=== PATIENT | male | born 1950 | race Caucasian/White ===

== ENCOUNTER 2016-05-22 06:01 | Inpatient (IN) | payer OTHER ==
[2016-05-02 12:09] VITALS: BMI 39.0
--- NOTE | 2016-05-02 12:59 | PAT Medication Instructions ---
Service Date May 02, 2016. Current Home Medication List Ascorbic Acid (Vitamin C *), 500 MG PO QAM Aspirin Enteric Coated (Ecotrin Or Generic *), 81 MG PO HS Atorvastatin (Lipitor), 40 MG PO HS Chlorthalidone (Hygroton), 25 MG PO QAM Cholecalciferol (Vitamin D), 2,000 INTER.UNIT PO QAM Cyanocobalamin (Vitamin B12 500MCG), 500 MCG PO QAM Fluticasone Prop/Salmeterol (Advair Diskus 250/50 Mcg *), 1 PUFF INH BID Folic Acid (Folvite *), 400 MCG PO QAM Metformin Hcl (Glucophage *), 1,000 MG PO BID Metoprolol Succ (Toprol Xl) (Toprol-Xl ), 100 MG PO QAM Nitroglycerin (Nitrostat), 0.4 MG UT PRN Pioglitazone Hcl (Actos), 30 MG PO QAM Propranolol La (Inderal La), 120 MG PO QAM Ramipril (Altace *), 10 MG PO HS Ranitidine (Zantac), 150 MG PO QAM Tadalafil (Cialis), 20 MG PO UD [Antibiotic], 1 TAB PO BID [selenium ], 2,000 MCG PO QAM Medication Instructions For Your Scheduled Surgery Nitroglycerin (Nitrostat), 0.4 MG UT PRN (if needed) Antibiotic 1 TAB PO BID (will finish prior to surgery) - Hold the following medications 7 days prior to surgery: Selenium 2,000 MCG PO QAM - Hold the following medications 48 hours prior to surgery: Metformin Hcl (Glucophage *), 1,000 MG PO BID - Hold the following medications evening prior to surgery: Ramipril (Altace *), 10 MG PO HS - Hold the following medications 24 hours prior to surgery: Tadalafil (Cialis), 20 MG PO UD - Hold the following medications the morning of surgery: Pioglitazone Hcl (Actos), 30 MG PO QAM Folic Acid (Folvite *), 400 MCG PO QAM Cholecalciferol (Vitamin D), 2,000 INTER.UNIT PO QAM Cyanocobalamin (Vitamin B12 500MCG), 500 MCG PO QAM Chlorthalidone (Hygroton), 25 MG PO QAM Ascorbic Acid (Vitamin C *), 500 MG PO QAM - Take the following medications the morning of surgery with a sip of water: Metoprolol Succ (Toprol Xl) (Toprol-Xl ), 100 MG PO QAM Fluticasone Prop/Salmeterol (Advair Diskus 250/50 Mcg *), 1 PUFF INH BID - Take the following medications as scheduled the night before surgery: Ranitidine (Zantac), 150 MG PO QAM Propranolol La (Inderal La), 120 MG PO QAM Fluticasone Prop/Salmeterol (Advair Diskus 250/50 Mcg *), 1 PUFF INH BID Atorvastatin (Lipitor), 40 MG PO HS Aspirin Enteric Coated (Ecotrin Or Generic *), 81 MG PO HS If you have any questions please call us at [phone] or [phone] ( [place]) or [phone]
[2016-05-02 13:33] LABS: PROTHROMBIN TIME (PATIENT) 11.2 SECONDS (9.0-12.0)
[2016-05-02 13:36] LABS: COMPLETE YES; EOS % 1.5 %; HEMATOCRIT 41.1 % (42-52); IG% 0.2 %; LYMPH % 13.5 %; LYMPH ABS # 0.81 K/uL (1.2-3.4); MEAN CELL VOLUME 96.9 fL (80-100); MEAN CORPUSCULAR HEMOGLOBIN 31.8 pg (25-34); MEAN CORPUSCULAR HGB CONC 32.8 g/dl (32-36); MEAN PLATELET VOLUME 11.2 fL (7.4-10.4); MONO % 10.7 %; NEUT % 74.1 %; PLATELET COUNT 135 K/uL (130-400); RED BLOOD COUNT 4.24 M/uL (4.7-6.1); WHITE BLOOD COUNT 5.99 K/uL (4.8-10.8)
--- NOTE | 2016-05-02 13:49 | DIAGNOSTIC IMAGING REPORT ---
TWO VIEW CHEST CLINICAL HISTORY: Preoperative examination. FINDINGS: PA and lateral chest radiographs are compared to study dated 04/02/2011. The examination is degraded by large body habitus. The heart is mildly enlarged and there is atherosclerotic calcification of the thoracic aorta. The pulmonary vasculature is noncongested. The lungs and pleural spaces are clear. There is no pneumothorax. The bony thorax appears intact. IMPRESSION: Mild cardiac enlargement with no active disease in the chest. Electronically signed by: Tucker Leon M.D. 05/02/2016 1:48 PM Dictated Date/Time: 05/02/2016 1:47 PM
--- NOTE | 2016-05-21 12:07 | HISTORY & PHYSICAL EXAMINATION ---
DATE OF ADMISSION: 05/22/2016 CHIEF COMPLAINT: Left hip pain. HISTORY OF PRESENT ILLNESS: The patient is a 65-year-old gentleman with known osteoarthritis about his left hip. He had a previous right total hip arthroplasty several years ago, which has done well. He has ongoing pain and disability with the left hip and now desires to proceed with left total hip arthroplasty. PAST MEDICAL HISTORY: Coronary artery disease, abdominal aortic aneurysm, hypertension, hypercholesterolemia, mild asthma, sleep apnea with CPAP use, type 2 diabetes, kidney stones, acid reflux, and obesity. PAST SURGICAL HISTORY: Right hip as above, cardiac stent, and lithotripsy. MEDICATIONS: Metformin HCL 1000 mg, Flomax 0.4 mg, propranolol HCL ER 120 mg, Zantac 150 mg, metoprolol succinate ER 100 mg, Nitrostat 0.4 mg sublingual p.r.n., CPAP machine [facility], vitamin B, Cialis, Lipitor 40 mg, chlorthalidone 25 mg, B12 at 500 mcg, vitamin D 3000 units, Advair Diskus 250/50, aspirin 81 mg, Altace 10 mg, Actos 30 mg, selenium 200 mcg, vitamin C 500 mg, and folic acid 400 mcg. ALLERGIES: AMOXICILLIN CAUSES A RASH, CODEINE CAUSES A RASH, BUT HE STATES HE IS OKAY WITH PAIN MEDICATIONS. SOCIAL HISTORY: He states he smokes 2 cigarettes a day and states weekly alcohol use. REVIEW OF SYSTEMS: Noncontributory. PHYSICAL EXAMINATION: GENERAL: Well-nourished and well-developed, obese male who appears his stated age. HEENT: Normocephalic and atraumatic. Extraocular movements intact. Oropharynx is pink and moist. NECK: Supple without adenopathy. LUNGS: Clear to auscultation bilaterally. HEART: Regular rate and rhythm. ABDOMEN: Soft, nontender, nondistended, and obese. EXTREMITIES: The upper extremities are within normal limits. The left hip demonstrates decreased range of motion. There is limitation of active and passive internal/external rotation with pain at end range. X-RAYS: X-rays were reviewed. He has well-aligned and well-fixed hip on the right. Left hip demonstrates moderate to severe osteoarthritis with near complete loss of the joint space. There is mild osteophyte formation about the femoral head and acetabulum. ASSESSMENT: Left hip degenerative joint disease. PLAN: Risks versus benefits were discussed. Consent was obtained. The patient's primary care physician is Dr. Eduar Gann from [place]. His skilled nursing professional is Dr. Armstrong and Dr. Fleming from [facility]. We will proceed with left total hip arthroplasty upon preoperative workup and medical clearance.
[2016-05-22] VITALS (9 sets, daily range): BP systolic 98–145; BP diastolic 60–82; PULSE 52–75; TEMP 36.5–36.6; O2SAT 96–98; Ht 177.8 cm; Wt 123.0 kg
[~2016-05-22] VITALS: Ht 177.8 cm; Wt 123.0 kg
[~2016-05-22 06:01] MED LIST: ACETAMINOPHEN 500 MG TAB PO SCH; ACT/30 PO; ADVIN25050 INH; ALT10 PO; ANTICRE6 PO; ASCA500 PO; ASPEC81 PO; ATOR-24 PO; CEFAZOLIN 3000 MG/65 ML D5W 65 ML IV SCH; CHOL100010 PO; CYAN500T13 PO; CeleBREX 200 MG CAP PO SCH; DEXAMETHASONE 4 MG TAB PO SCH; FAMOTIDINE 20 MG TAB PO SCH; FLV400 PO; GABAPENTIN 300 MG CAP PO SCH; GLC500 PO; HYG/25 PO; INDSR/120 PO; LACTATED RINGER'S 1000ML 1,000 ML IV SCH; LACTATED RINGER'S 1000ML IV SCH; LACTATED RINGER'S 500 ML IV SCH; METO1TAB69 PO; METOCLOPRAMIDE HCL 10 MG TAB PO SCH; NTRGSL/4 UT; ROPIVACAINE 5MG/ML 30 ML 150 MG, BUPIVACAINE/EPINEPHR 0.5% MPF 30 ML, KETOROLAC TROMETH... INFIL SCH; TADA10TA PO; ZNTT/150 PO; selenium PO
[2016-05-22] MEDS ORDERED: BUPIVACAINE 0.5 % 5 MG/1 ML PF 10ML VIAL ONE (06:22)
[2016-05-22] MEDS: TRANEXAMIC ACID INJ 1,000 MG in SODIUM CHLORIDE 0.9% 100ML 100 ML IV SCH ×2 (06:30→07:16)
[2016-05-22] MEDS ORDERED: PROPOFOL IV EMULSION 10 MG/ML 20 ML VIAL IV ONE (06:39)
[2016-05-22] MEDS ORDERED: LIDOCAINE HCL 2% 2 ML VIAL (20MG/ML) ONE (06:39)
[2016-05-22] MEDS ORDERED: FENTANYL CITRATE INJ 50 MCG/1 ML 2 ML VIAL ONE (06:39)
[2016-05-22] MEDS ORDERED: MIDAZOLAM HCL 1 MG/ML 2ML VIAL ONE ×2 (06:39→08:26)
[2016-05-22] MEDS ORDERED: POVIDONE-IODINE OP SOLN 30 ML BTL ONE (06:48)
[2016-05-22] MEDS ORDERED: ORTHO JOINT ANESTHETIC ONE (06:48)
[2016-05-22] MEDS ORDERED: BACITRACIN 50000 UNIT VIAL ONE (06:48)
--- NOTE | 2016-05-22 06:59 | History & Physical Bridge Note ---
H&P Re-Evaluation Bridge Note: I have examined the patient, reviewed the History & Physical and in the interval since the performance of the History & Physical I have noted the following changes of clinical significance: No changes noted
[2016-05-22] MEDS ORDERED: FLUMAZENIL 0.1 MG/1 ML 10 ML VIAL IV PRN (08:15)
[2016-05-22] MEDS ORDERED: NALOXONE HCL 0.4 MG/1 ML VIAL/CARP IV PRN (08:15)
[2016-05-22] MEDS ORDERED: ATROPINE SULFATE 0.1 MG/ML 5ML SYR IV PRN (08:15)
[2016-05-22] MEDS ORDERED: MEPERIDINE HCL 25 MG/ML CARP IV PRN (08:15)
[2016-05-22] MEDS ORDERED: LABETALOL HCL IV 5 MG/ML 20ML IV PRN (08:15)
[2016-05-22] MEDS ORDERED: PHENYLEPHRINE 100MCG/ML 5ML SYR IV PRN (08:15)
[2016-05-22] MEDS ORDERED: ONDANSETRON INJ 2 MG/ML 2 ML VIAL IV PRN ×2 (08:15→09:30)
[2016-05-22] MEDS ORDERED: EpHEDrine SULFATE INJ 50 MG/ML AMP IV PRN (08:15)
[2016-05-22] MEDS ORDERED: FENTANYL CITRATE INJ 50 MCG/1 ML 2 ML VIAL IV PRN (08:15)
[2016-05-22] MEDS ORDERED: EpHEDrine SULFATE 50MG/5ML SYR ONE (08:42)
--- NOTE | 2016-05-22 08:52 | [facility] Post Operative Brief Note ---
Immediate Operative Summary Operative Date May 22, 2016. Pre-Operative Diagnosis Left Hip Degenerative Joint Disease Post-Operative Diagnosis Same as preop Procedure(s) Performed Left Total Hip Arthroplasty Uncemented Surgeon Dr. Ruano Document Restorer Surgeon(s) Kuldip Goss PA-C Estimated Blood Loss 150 ml Findings severe oa Specimens A. Left Femoral Head Disposition Recovery Room / PACU
--- NOTE | 2016-05-22 09:11 | OPERATIVE REPORT ---
DATE OF OPERATION: 05/22/2016 PREOPERATIVE DIAGNOSIS: Osteoarthritis left hip. POSTOPERATIVE DIAGNOSIS: Osteoarthritis left hip. PROCEDURE: Left total hip arthroplasty. SURGEON: Dr. Ruano. SLP: Kuldip Goss PA-C. ANESTHESIA: Spinal. COMPLICATIONS: None. NOTE: The patient's surgery was made much more challenging and took much longer due to the elevated body mass index of 44. OPERATION AND FINDINGS: PROCEDURE: Following induction of adequate spinal anesthesia, the patient was placed in right lateral decubitus position and left Perez-Langenbeck incision was made. Subcutaneous tissue was sharply dissected. Electrocautery used for hemostasis. The fascia was incised throughout the length of the wound and a caceres scissor placed beneath the short external rotators. The pyriformis was tagged with #1 Vicryl. The short external rotators were divided from the posterior aspect of the femur using electrocautery. These were swept posteriorly. A T-capsulotomy incision was made and the hip was dislocated using a combination of flexion, adduction, and internal rotation. Exposure of the femoral neck with old-style Hohmann and a blunt Hohmann was carried out and a femoral rasp was utilized as a guide for making the appropriate level femoral neck cut. This bone fragment was removed and reserved on the back table. Next, attention was turned to the acetabulum where bone hook was used to retract the femur while the offset retractors were placed anterior and posteriorly. A double-angled Hohmann was placed in superior and anterior position exposing the acetabulum nicely. Acetabular labrum as well as posterior capsule elements were removed using a long knife and a long pickup. Fovea centralis was cleared of all soft tissue. Sequential reamings were carried up to a size 54 and decision was made to proceed with impaction of a 54 trabecular metal cup. This was impacted and held using a single 35 mm bone screw. The acetabular liner was placed with 15 of elevated posterior wall in the superior and posterior position. Next, attention was turned to the femoral portion of the case where a Bovie and pickup was used to further clear short external rotators from their insertion on the femur. Box osteotome was used to gain access to the femoral canal and the T-handled rasp and a rattail rasp were used to further open and lateral the canal. Sequentially raspings were carried up to a Accolade size 4 which gave good fit and fill of the proximal femur. A trial reduction was carried out and size 4 offset femoral neck component was chosen as the size to be used. A +0 x 36 mm ceramic femoral head was impacted into position, +0 head was utilized. The trial reduction was stable in all degrees of rotation with no [id number] impingement. The hip was dislocated. The trial components were removed and the final femoral stem, neck, and femoral head combination were assembled on the back table and impacted into position. Hip was relocated. Range of motion checked once again successful and the wound was irrigated. The pyriformis repaired to the greater trochanter using #1 Vicryl [id number] suture. A Hemovac drain was placed and the fascia was closed using #1 Vicryl, subcutaneous tissue was closed using 0 Dexon, and skin was closed with garo. Sterile dressing of Adaptic, 4 x 4's, ABDs, and foam tape was applied. Recovery room stable. The patient tolerated the procedure well. Due to the complex nature of the procedure, the entire surgery was performed with the operational assistance of Kuldip Goss PA-C. The bookkeeping assistant, under direct supervision, was involved in the actual performance of all aspects of the surgical procedure including hemostasis, tissue retraction and incision, instrument management, patient positioning, and wound closure. I attest to the content of the Intraoperative Record and any orders documented therein. Any exceptio ns are noted below.
[2016-05-22] MEDS ORDERED: ZOLPIDEM TARTRATE 5 MG TAB PO PRN (09:30)
[2016-05-22] MEDS ORDERED: BISACODYL 10 MG SUPP PR PRN (09:30)
[2016-05-22] MEDS ORDERED: ALUMINUM/MAGNESIUM/SIMETH (MAALOX MAX) 30 ML UDC PO PRN (09:30)
[2016-05-22] MEDS ORDERED: MoRPHine SULFATE 2 MG/ML CARP IV PRN (09:30)
[2016-05-22] MEDS ORDERED: MAGNESIUM HYDROXIDE SUSP 30 ML UDC PO PRN (09:30)
[2016-05-22] MEDS ORDERED: NITROGLYCERIN 0.4 MG SL PER TAB CHARGE UT PRN (09:30)
[2016-05-22] MEDS ORDERED: DiphenhydrAMINE HCL 50 MG/ML VIAL IV PRN (09:30)
--- NOTE | 2016-05-22 09:54 | DIAGNOSTIC IMAGING REPORT ---
AP PELVIS, CROSSTABLE LATERAL LEFT HIP History: Left total hip arthroplasty. Degenerative arthritis. Postop. FINDINGS: The patient is status post a left total hip arthroplasty. The hardware is intact. No fracture or dislocation. Skin garo and surgical drains are in place. Prior right total hip arthroplasty. IMPRESSION: Left total hip arthroplasty. No evidence for hardware complication. Electronically signed by: Ricky Hummel M.D. 05/22/2016 9:52 AM Dictated Date/Time: 05/22/2016 9:52 AM
--- NOTE | 2016-05-22 10:14 | Anesthesiology Progress Note ---
Anesthesia Post Op Note Date & Time May 22, 2016 at 10:14 Vital Signs Pain Intensity: 0 Vital Signs Past 12 Hours Date Time Temp Pulse Resp B/P Pulse Ox O2 Delivery O2 Flow Rate FiO2 05/22/16 10:00 56 12 115/47 100 Nasal Cannula 2 05/22/16 09:50 54 12 108/58 100 Nasal Cannula 4 05/22/16 09:40 52 12 110/52 100 Nasal Cannula 4 05/22/16 09:30 36.4 62 16 110/52 98 Nasal Cannula 4 05/22/16 06:45 36.5 62 20 139/61 97 Room Air Notes Mental Status: alert / awake / arousable, participated in evaluation Pt Amnestic to Procedure: Yes Nausea / Vomiting: adequately controlled Pain: adequately controlled Airway Patency, RR, SpO2: stable & adequate BP & HR: stable & adequate Hydration State: stable & adequate Neuraxial Anesthesia: was administered, sensory block is resolving Anesthetic Complications: no major complications apparent
[2016-05-22] MEDS: SODIUM CHLORIDE 0.9% 1000ML 1,000 ML IV SCH ×2 (11:20→19:15)
--- NOTE | 2016-05-22 11:34 | Medical Consult ---
Consultation Date of Consultation: May 22, 2016. Attending Physician: Tim Ruano M.D. Reason for Consultation: s/p left hip arthroplasty, sig CAD history History of Present Illness This is a 65 yo m that is POD0 s/p left hip arthroplasty. Patient has several significant comorbidities that could complicate the post op time period so a hospital consulation was made. He has a significant cardiac history which includes stent placement without having an TX. He states that his first cath was in but no stent was placed at this time. He had another cath 4-5 years later where stents were placed and finally one in 2005 approximately which also had stents placed. Since this time he has been following with Dr Perez cardiology. He states his last echo was in the last 6 months and he had a stress test 2 weeks prior which was WNL. He denies ever having any chest pain or the need to use NTG. He also has a h/o DM. This is controlled mainly with the oral agents, metformin and Actos. He notes that he feels he has had reasonable control with this medication and has never had to take insulin. He states that he currently has very good pain control and is feeling well. Denies any SOB, chest pain, nausea or vomiting at this time. Past Medical/Surgical History CAD requiring stent placement DMII Vit D def Right hip arthroplasty Asthma Family History Patient reports no known family medical history. Social History Smoking Status: Light Tobacco Smoker (2 cig daily) Smokeless Tobacco Use: No Alcohol Use: socially Drug Use: none Marital Status: Housing Status: lives with family Allergies Coded Allergies: Amoxicillin (Verified Allergy, Intermediate, rash, 05/22/16) Codeine (Verified Allergy, Intermediate, rash, 05/22/16) Current Inpatient Medications Current Inpatient Medications Medications (Trade) Dose Ordered Sig/Darrell Route Start Time Stop Time Status Last Admin Dose Admin Lactated Ringer's 1,000 ml @ 60 mls/hr [id number] IV 05/22/16 06:00 05/22/16 22:39 Cefazolin Sodium (Ancef 3000 Mg/ 65 ml D5W) 65 ml @ 100 mls/hr PREOP IV 05/22/16 06:00 05/22/16 18:00 05/22/16 07:43 100 MLS/HR Acetaminophen (Tylenol Tab) 1,000 mg PREOP PO 05/22/16 06:00 05/22/16 18:00 05/22/16 07:06 1,000 MG Celecoxib (CeleBREX CAP) 200 mg PREOP PO 05/22/16 06:00 05/22/16 18:00 05/22/16 07:05 200 MG Dexamethasone (Decadron Tab) 8 mg PREOP PO 05/22/16 06:00 05/22/16 18:00 05/22/16 07:06 8 MG Famotidine (Pepcid Tab) 20 mg PREOP PO 05/22/16 06:00 05/22/16 18:00 05/22/16 07:05 20 MG Gabapentin (Neurontin Cap) 300 mg PREOP PO 05/22/16 06:00 05/22/16 18:00 05/22/16 07:06 300 MG Metoclopramide HCl 10 mg 10 mg PREOP PO 05/22/16 06:00 05/22/16 18:00 05/22/16 07:06 10 MG Tranexamic Acid/ Sodium Chloride (Cyklokapron Inj/ Nss 100ml) 110 ml @ 660 mls/hr TODAY@06,0630 IV 05/22/16 06:00 05/22/16 18:00 05/22/16 07:16 660 MLS/HR Fentanyl Citrate (Fentanyl Inj) 25 mcg Q5M PRN IV 05/22/16 08:15 05/22/16 13:15 Naloxone HCl (Narcan Inj) 0.2 mg Q2M PRN IV 05/22/16 08:15 05/23/16 08:14 Meperidine HCl (Demerol Inj) 12.5 mg Q5M PRN IV 05/22/16 08:15 05/23/16 08:14 Ondansetron HCl (Zofran Inj) 4 mg ONE PRN IV 05/22/16 08:15 Flumazenil (Romazicon Inj) 0.2 mg Q2M PRN IV 05/22/16 08:15 05/22/16 13:15 Labetalol HCl (Normodyne IV) 5 mg Q5M PRN IV 05/22/16 08:15 05/22/16 13:15 Ephedrine Sulfate (EpHEDrine SULFATE INJ) 5 mg Q5M PRN IV 05/22/16 08:15 05/23/16 08:14 Atropine Sulfate (Atropine Sulfate 0.1MG/Ml Inj) 0.5 mg Q1M PRN IV 05/22/16 08:15 05/22/16 12:15 Phenylephrine HCl (Denys-Synephrine 500MCG/5ML Syr) 100 mcg Q5M PRN IV 05/22/16 08:15 05/22/16 13:15 Atorvastatin Calcium (Lipitor Tab) 40 mg HS PO 05/22/16 21:00 06/21/16 20:59 Chlorthalidone (Hygroton Tab) 25 mg QAM PO 05/23/16 09:00 06/22/16 08:59 Cholecalciferol (Vitamin D Tab) 2,000 inter.unit QAM PO 05/23/16 09:00 06/22/16 08:59 Cyanocobalamin (Vitamin B-12 Tab) 500 mcg QAM PO 05/23/16 09:00 06/22/16 08:59 Salmeterol Xinafoate/ Fluticasone (Advair Diskus 250/50 Inh) 1 puff BID INH 05/22/16 21:00 06/21/16 20:59 Folic Acid (Folvite Tab) 400 mcg QAM PO 05/23/16 09:00 06/22/16 08:59 Metoprolol Succinate (Toprol Xl Tab) 100 mg QAM PO 05/23/16 09:00 06/22/16 08:59 Nitroglycerin (Nitrostat Tab) 0.4 mg UD PRN UT 05/22/16 09:30 06/21/16 09:29 Propranolol HCl (Inderal La Cap) 120 mg QAM PO 05/23/16 09:00 06/22/16 08:59 Non-Formulary Medication (Pioglitazone Hcl (Actos)) 30 mg QAM PO 05/23/16 09:00 06/22/16 08:59 UNV Non-Formulary Medication (Ramipril (Altace *)) 10 mg HS PO 05/22/16 21:00 06/21/16 20:59 UNV Morphine Sulfate PAIN SCALE 0-3 2MG ... Q4HWA PRN IV 05/22/16 09:30 06/05/16 09:29 UNV Sodium Chloride (Nss 1000ml) 1,000 ml @ 100 mls/hr Q10H IV 05/22/16 09:30 05/23/16 09:29 05/22/16 11:20 100 MLS/HR Oxycodone HCl 1 TABLET FOR PAIN RATING... Q4H PRN PO 05/22/16 09:30 06/05/16 09:29 Acetaminophen/ Empty Bag (Ofirmev Iv/ Empty Iv Bag 100ml) 100 ml @ 400 mls/hr Q8 IV 05/22/16 14:00 05/23/16 13:59 Magnesium Hydroxide (Milk Of Magnesia Susp) 30 ml Q6H PRN PO 05/22/16 09:30 06/21/16 09:29 Bisacodyl (Dulcolax Supp) 10 mg DAILY PRN WV 05/22/16 09:30 06/21/16 09:29 Senna (Senokot Tab) 17.2 mg HS PO 05/22/16 21:00 06/21/16 20:59 Docusate Sodium (coLACE CAP) 100 mg BID PO 05/22/16 21:00 06/21/16 20:59 Diphenhydramine HCl (Benadryl Inj) 25 mg Q8H PRN IV 05/22/16 09:30 06/21/16 09:29 Al Hydrox/Mg Hydrox/Simethicone (Maalox Max Susp) 15 ml Q4H PRN PO 05/22/16 09:30 06/21/16 09:29 Zolpidem Tartrate (Ambien Tab) 5 mg HSZ PRN PO 05/22/16 09:30 06/21/16 09:29 Multivitamins (Multivitamin Tab) 1 tab QAM PO 05/23/16 09:00 06/22/16 08:59 Ondansetron HCl (Zofran Inj) 4 mg Q6H PRN IV 05/22/16 09:30 06/21/16 09:29 Ferrous Gluconate (Ferrous Gluconate Tab) 324 mg TIDM PO 05/22/16 12:30 06/21/16 12:29 Pantoprazole Sodium (Protonix Tab) 40 mg QAM PO 05/23/16 09:00 06/22/16 08:59 Tramadol HCl 1 TABLET FOR PAIN RATING... Q4H PRN PO 05/22/16 09:30 06/21/16 09:29 Cefazolin Sodium/ Dextrose (Ancef Iv/D5 50ml) 60 ml @ 100 mls/hr Q8H IV 05/22/16 16:00 05/23/16 00:35 Aspirin (Ecotrin Tab) 81 mg BID PO 05/22/16 21:00 06/21/16 20:59 Insulin Aspart (novoLOG ASPART) SLIDING SCALE G... ACHS SC 05/22/16 12:00 06/21/16 11:59 Review of Systems Constitutional: No fever Eyes: No worsening of vision ENT: No hearing loss Respiratory: No cough, No dyspnea at rest, No dyspnea on exertion, No shortness of breath, No sputum, No wheezing Cardiovascular: No chest pain Abdomen: No constipation, No diarrhea, No nausea, No pain, No vomiting Musculoskeletal: + joint pain (right hip arthroplasty pain controlled) Genitourinary - Male: No dysuria, No hematuria Neurologic: No balance problems, No numbness/tingling, No weakness Psychiatric: No depression symptoms Endocrine: No fatigue Integumentary: No rash Physical Exam Date Time Temp Pulse Resp B/P Pulse Ox O2 Delivery O2 Flow Rate FiO2 05/22/16 11:07 52 18 132/79 97 Nasal Cannula 2.0 05/22/16 10:35 Nasal Cannula 2.0 05/22/16 10:35 98 Nasal Cannula 2.0 05/22/16 10:35 36.6 58 16 114/73 98 Nasal Cannula 2.0 05/22/16 10:20 36.3 55 14 109/52 99 Nasal Cannula 2 05/22/16 10:10 58 17 98/53 100 Nasal Cannula 2 05/22/16 10:00 56 12 115/47 100 Nasal Cannula 2 05/22/16 09:50 54 12 108/58 100 Nasal Cannula 4 05/22/16 09:40 52 12 110/52 100 Nasal Cannula 4 05/22/16 09:30 36.4 62 16 110/52 98 Nasal Cannula 4 05/22/16 06:45 36.5 62 20 139/61 97 Room Air General Appearance: WD/WN, no apparent distress Head: normocephalic, atraumatic Eyes: normal inspection ENT: normal ENT inspection Neck: supple Respiratory/Chest: lungs clear, normal breath sounds, no respiratory distress, no accessory muscle use, + decreased breath sounds (bilat bases) Cardiovascular: regular rate, rhythm, no murmur Abdomen/GI: normal bowel sounds, non tender, soft Back: normal inspection Extremities/Musculoskelatal: normal inspection, no calf tenderness, no pedal edema Neurologic/Psych: alert, normal mood/affect, oriented x 3 Skin: normal color, warm/dry, no rash, + pertinent finding (left hip incision clean dry and intact) Laboratory Results Last 24 Hours Test 05/22/16 06:21 05/22/16 09:34 05/22/16 11:01 Bedside Glucose 165 mg/dl 155 mg/dl Assessment & Plan This is a 65 yo m POD0 s/p left hip arthroplasty with a sig medical h/o CAD/DMII / Sleep apnea/ Obesity S/P left hip arthroplasty - pain control as per primary team - incentive spirometry H/O CAD/ HTN - On Toprol XL, Chlorthalidone, enalapril - Hold ramipril - resume in am if renal function, BP ok. - took toprol this am. - BMP to assess Cr Essential tremors - hold inderal for now to avoid hypotension Anemia - repeat CBC in the am and follow - continue ferrous gluconate Hyperlipidemia - continue atorvastatin Asthma - continue advair O2 per protocol - Duoneb prn Sleep apnea - CPAP overnight GERD - Continue pantoprazole DMII - hold metformin - continue actos - Insulin ISS - bsg AC HS Full code Additional Copies To Eduar Gann M.D. Reviewed: Pt Seen/Exam by Me History 65 y/o M s/p left hip arthroplasty Constitutional: denies: fever Respiratory: negative: short of breath Cardiovascular: denies chest pain Gastrointestinal/Abdominal: negative: abdominal pain General Appearance: no apparent distress Respiratory: lungs clear, no respiratory distress Cardiovascular: normal peripheral pulses, regular rate, rhythm, no edema Gastrointestinal: normal bowel sounds, non tender, soft Neurologic/Psychiatric: alert, oriented x 3 Skin Characteristics: warm/dry Assessment/Plan I have reviewed the medical record and performed a history and physical examination of this patient today. I have discussed the case with Dr. Herr. The above note reflects my findings, conclusions, and recommendations. BSG - in 300. Metformin on hold today. Add lantus 10units - one dose now.
[2016-05-22] MEDS ORDERED: MoRPHine SULFATE 10 MG/ML CARP/VIAL IV PRN (11:45)
[2016-05-22] MEDS ORDERED: MoRPHine SULFATE 4 MG/ML 1 ML CARP\\VIAL IV PRN (11:45)
[2016-05-22] MEDS ORDERED: ALBUT/IPRATROP 3MG/0.5MG NEB 3 ML VIAL INH PRN (11:45)
[2016-05-22] MEDS: FERROUS GLUCONATE 324 MG TAB PO SCH ×2 (12:30→18:14)
[2016-05-22] MEDS: INSULIN ASPART 100 UNITS/ML 3 ML PEN SC SCH ×3 (12:31→20:44)
[2016-05-22 12:36] LABS: BUN/CREATININE RATIO 22.4 (10-20); CALCIUM 8.7 mg/dl (8.5-10.1); CREATININE 1.3 mg/dl (0.60-1.40); POTASSIUM 5.1 mmol/L (3.5-5.1)
[2016-05-22] MEDS: ACETAMINOPHEN IV 1,000 MG in EMPTY BAG 0 ML IV SCH ×2 (13:40→21:36)
[2016-05-22] MEDS: CEFAZOLIN IV 2,000 MG in DEXTROSE 5% 50ML 50 ML IV SCH ×2 (15:28→23:37)
[2016-05-22] MEDS ORDERED: INSULIN GLARGINE SOLOSTAR 100 UNITS/ML 3 ML PEN SC ONE (16:58)
[2016-05-22] MEDS ORDERED: GLUCAGON FOR INJ 1 MG VIAL SQ PRN (17:15)
[2016-05-22] MEDS ORDERED: GLUCOSE 40% GEL 15 GM TUBE PO PRN (17:15)
[2016-05-22] MEDS ORDERED: GLUCOSE 10 TABS/TUBE PO PRN (17:15)
[2016-05-22] MEDS ORDERED: DEXTROSE 50% 50 ML SYR IV PRN (17:15)
[2016-05-22] MEDS ORDERED: LORATADINE 10 MG TAB PO ONE (18:30)
[2016-05-22] MEDS: OXYCODONE HCL IR 5 MG TAB (IMMEDIATE RELEASE) PO PRN (20:33)
[2016-05-22] MEDS: ATORVASTATIN 40 MG TAB PO SCH (20:36)
[2016-05-22] MEDS: ENALAPRIL MALEATE 10 MG TAB PO SCH (20:36)
[2016-05-22] MEDS: ASPIRIN 81 MG ECTAB PO SCH (20:37)
[2016-05-22] MEDS: DOCUSATE SODIUM 100 MG CAP PO SCH (20:37)
[2016-05-22] MEDS: SENNA 8.6 MG TAB PO SCH (20:37)
[2016-05-22] MEDS: FLUTICASONE/SALMETEROL 250/50 (ADVAIR) 14 PUFF/1 INHALER INH SCH (20:38)
[2016-05-22] MEDS: TRAMADOL HCL 50 MG TAB PO PRN (23:37)
[2016-05-23] VITALS (8 sets, daily range): BP systolic 101–129; BP diastolic 62–74; PULSE 54–76; TEMP 36.5–36.6; O2SAT 95–98
[2016-05-23] MEDS: OXYCODONE HCL IR 5 MG TAB (IMMEDIATE RELEASE) PO PRN ×6 (04:16→23:36)
[2016-05-23] MEDS: SODIUM CHLORIDE 0.9% 1000ML 1,000 ML IV SCH (05:51)
[2016-05-23] MEDS: ACETAMINOPHEN IV 1,000 MG in EMPTY BAG 0 ML IV SCH (05:51)
[2016-05-23 05:54] LABS: COMPLETE YES; HEMATOCRIT 34.1 % (42-52); IG% 0.3 %; LYMPH % 7.3 %; LYMPH ABS # 0.58 K/uL (1.2-3.4); MEAN CELL VOLUME 95.3 fL (80-100); MEAN CORPUSCULAR HGB CONC 32.6 g/dl (32-36); MEAN PLATELET VOLUME 11.4 fL (7.4-10.4); MONO % 11.9 %; NEUT % 80.5 %; PLATELET COUNT 119 K/uL (130-400); RED BLOOD COUNT 3.58 M/uL (4.7-6.1); WHITE BLOOD COUNT 7.96 K/uL (4.8-10.8)
[2016-05-23 06:27] LABS: BUN/CREATININE RATIO 23.6 (10-20); CREATININE 1.4 mg/dl (0.60-1.40); POTASSIUM 4.2 mmol/L (3.5-5.1)
--- NOTE | 2016-05-23 07:42 | Anesthesiology Progress Note ---
Anesthesia Post Op Note Date & Time May 23, 2016 at 07:41 Vital Signs Pain Intensity: 2.0 Vital Signs Past 12 Hours Date Time Temp Pulse Resp B/P Pulse Ox O2 Delivery O2 Flow Rate FiO2 05/23/16 04:12 36.6 54 18 117/68 98 CPAP 05/22/16 23:47 Room Air 05/22/16 23:32 36.6 75 22 98/60 96 Room Air 05/22/16 20:21 36.6 65 16 122/69 97 Room Air Notes Mental Status: alert / awake / arousable, participated in evaluation Pt Amnestic to Procedure: Yes Nausea / Vomiting: adequately controlled Pain: adequately controlled Airway Patency, RR, SpO2: stable & adequate BP & HR: stable & adequate Hydration State: stable & adequate Neuraxial Anesthesia: sensory block resolved Anesthetic Complications: no major complications apparent
[2016-05-23] MEDS: INSULIN ASPART 100 UNITS/ML 3 ML PEN SC SCH ×4 (08:00→22:00)
[2016-05-23] MEDS: INSULIN GLARGINE SOLOSTAR 100 UNITS/ML 3 ML PEN SC SCH (08:34)
--- NOTE | 2016-05-23 08:47 | Family Medicine Progress Note ---
Progress Note Date of Service May 23, 2016. Subjective Pt evaluation today including: conversation w/ patient, physical exam, chart review, lab review Pain: 0/10 PO Intake: WNL Voiding: no voiding problems Feeling well this am, was resting in bed no questions or concerns Constitutional: No fever Eyes: No worsening of vision ENT: No hearing loss Respiratory: No cough, No dyspnea on exertion, No shortness of breath, No sputum, No wheezing Cardiovascular: No chest pain Abdomen: No constipation, No diarrhea, No nausea, No pain, No vomiting Musculoskeletal: No joint pain, No muscle pain Neurologic: No balance problems, No numbness/tingling, No weakness Endo: No fatigue Medications Medications Administered Medications (Trade) Dose Ordered Sig/Darrell Route Start Time Stop Time Status Last Admin Dose Admin Lactated Ringer's 500 ml @ 999 mls/hr Q31M IV 05/22/16 06:00 05/22/16 06:30 DC 05/22/16 06:35 999 MLS/HR Cefazolin Sodium (Ancef 3000 Mg/ 65 ml D5W) 65 ml @ 100 mls/hr PREOP IV 05/22/16 06:00 05/22/16 18:00 DC 05/22/16 07:43 100 MLS/HR Acetaminophen (Tylenol Tab) 1,000 mg PREOP PO 05/22/16 06:00 05/22/16 18:00 DC 05/22/16 07:06 1,000 MG Celecoxib (CeleBREX CAP) 200 mg PREOP PO 05/22/16 06:00 05/22/16 18:00 DC 05/22/16 07:05 200 MG Dexamethasone (Decadron Tab) 8 mg PREOP PO 05/22/16 06:00 05/22/16 18:00 DC 05/22/16 07:06 8 MG Famotidine (Pepcid Tab) 20 mg PREOP PO 05/22/16 06:00 05/22/16 18:00 DC 05/22/16 07:05 20 MG Gabapentin (Neurontin Cap) 300 mg PREOP PO 05/22/16 06:00 05/22/16 18:00 DC 05/22/16 07:06 300 MG Metoclopramide HCl 10 mg 10 mg PREOP PO 05/22/16 06:00 05/22/16 18:00 DC 05/22/16 07:06 10 MG Tranexamic Acid/ Sodium Chloride (Cyklokapron Inj/ Nss 100ml) 110 ml @ 660 mls/hr TODAY@06,0630 IV 05/22/16 06:00 05/22/16 18:00 DC 05/22/16 07:16 660 MLS/HR Povidone Iodine (Betadine Ophthalmic Prep Solution) 30 ml STK-MED ONCE .ROUTE 05/22/16 06:48 05/22/16 06:51 DC 05/22/16 09:00 30 ML Bacitracin (Bacitracin Inj) 50,000 units STK-MED ONCE .ROUTE 05/22/16 06:48 05/22/16 06:51 DC 05/22/16 09:10 50,000 UNITS Atorvastatin Calcium (Lipitor Tab) 40 mg HS PO 05/22/16 21:00 06/21/16 20:59 05/22/16 20:36 40 MG Salmeterol Xinafoate/ Fluticasone (Advair Diskus 250/50 Inh) 1 puff BID INH 05/22/16 21:00 06/21/16 20:59 05/22/16 20:38 1 PUFF Enalapril Maleate 40 mg 40 mg HS PO 05/22/16 21:00 06/21/16 20:59 05/22/16 20:36 40 MG Sodium Chloride (Nss 1000ml) 1,000 ml @ 100 mls/hr Q10H IV 05/22/16 09:30 05/23/16 09:29 05/23/16 05:51 100 MLS/HR Oxycodone HCl 1 TABLET FOR PAIN RATING... Q4H PRN PO 05/22/16 09:30 06/05/16 09:29 05/23/16 04:16 5 MG Acetaminophen/ Empty Bag (Ofirmev Iv/ Empty Iv Bag 100ml) 100 ml @ 400 mls/hr Q8 IV 05/22/16 14:00 05/23/16 13:59 05/23/16 05:51 400 MLS/HR Senna (Senokot Tab) 17.2 mg HS PO 05/22/16 21:00 06/21/16 20:59 05/22/16 20:37 17.2 MG Docusate Sodium (coLACE CAP) 100 mg BID PO 05/22/16 21:00 06/21/16 20:59 05/22/16 20:37 100 MG Diphenhydramine HCl (Benadryl Inj) 25 mg Q8H PRN IV 05/22/16 09:30 06/21/16 09:29 05/23/16 04:15 25 MG Ferrous Gluconate (Ferrous Gluconate Tab) 324 mg TIDM PO 05/22/16 12:30 06/21/16 12:29 05/22/16 18:14 324 MG Tramadol HCl 1 TABLET FOR PAIN RATING... Q4H PRN PO 05/22/16 09:30 06/21/16 09:29 05/22/16 23:37 100 MG Cefazolin Sodium/ Dextrose (Ancef Iv/D5 50ml) 60 ml @ 100 mls/hr Q8H IV 05/22/16 16:00 05/23/16 00:35 DC 05/22/16 23:37 100 MLS/HR Aspirin (Ecotrin Tab) 81 mg BID PO 05/22/16 21:00 06/21/16 20:59 05/22/16 20:37 81 MG Insulin Aspart (novoLOG ASPART) SLIDING SCALE G... ACHS SC 05/22/16 12:00 06/21/16 11:59 05/22/16 20:44 4 UNITS Insulin Glargine (Lantus Solostar Pen) 10 unit 1658 ONCE SC 05/22/16 16:58 05/22/16 17:04 DC 05/22/16 18:47 10 UNIT Loratadine (Claritin Tab) 10 mg NOW ONCE PO 05/22/16 18:30 05/22/16 18:32 DC 05/22/16 19:14 10 MG Objective Vital Signs Date Time Temp Pulse Resp B/P Pulse Ox O2 Delivery O2 Flow Rate FiO2 05/23/16 08:05 36.5 76 16 129/71 96 Room Air 05/23/16 04:12 36.6 54 18 117/68 98 CPAP 05/22/16 23:47 Room Air 05/22/16 23:32 36.6 75 22 98/60 96 Room Air 05/22/16 20:21 36.6 65 16 122/69 97 Room Air 05/22/16 15:30 Room Air 05/22/16 15:06 36.5 61 16 139/73 98 Room Air 05/22/16 13:59 66 20 145/75 97 Room Air 05/22/16 12:35 62 16 138/82 96 Room Air 05/22/16 11:36 36.6 62 18 129/68 97 Nasal Cannula 2.0 05/22/16 11:07 52 18 132/79 97 Nasal Cannula 2.0 05/22/16 10:35 Nasal Cannula 2.0 05/22/16 10:35 98 Nasal Cannula 2.0 05/22/16 10:35 36.6 58 16 114/73 98 Nasal Cannula 2.0 05/22/16 10:20 36.3 55 14 109/52 99 Nasal Cannula 2 05/22/16 10:10 58 17 98/53 100 Nasal Cannula 2 05/22/16 10:00 56 12 115/47 100 Nasal Cannula 2 05/22/16 09:50 54 12 108/58 100 Nasal Cannula 4 05/22/16 09:40 52 12 110/52 100 Nasal Cannula 4 05/22/16 09:30 36.4 62 16 110/52 98 Nasal Cannula 4 Physical Exam General Appearance: WD/WN, no apparent distress, + obese Eyes: normal inspection ENT: normal ENT inspection Neck: supple Respiratory/Chest: lungs clear, normal breath sounds, no respiratory distress, no accessory muscle use Cardiovascular: regular rate, rhythm, no murmur Abdomen: normal bowel sounds, non tender, soft Extremities: no pedal edema, no calf tenderness Neurologic/Psychiatric: alert, normal mood/affect, oriented x 3, + pertinent finding Skin: normal color, warm/dry, no rash, + pertinent finding (wound clean dry and intact) Lymphatic: no adenopathy Laboratory Results Results Past 24 Hours Test 05/22/16 09:34 05/22/16 11:27 05/22/16 11:39 05/22/16 16:41 Range/Units Bedside Glucose 155 184 215 70-99 mg/dl Sodium Level 141 136-145 mmol/L Potassium Level 5.1 3.5-5.1 mmol/L Chloride Level 105 98-107 mmol/L Carbon Dioxide Level 28 21-32 mmol/L Anion Gap 8.0 3-11 mmol/L Blood Urea Nitrogen 29 7-18 mg/dl Creatinine 1.30 0.60-1.40 mg/dl Est Creatinine Clear Calc Drug Dose 73.5 ml/min Estimated GFR () 65.9 Estimated GFR (Non- 56.9 BUN/Creatinine Ratio 22.4 10-20 Random Glucose 201 70-99 mg/dl Calcium Level 8.7 8.5-10.1 mg/dl Test 05/22/16 20:35 05/23/16 05:11 05/23/16 08:06 Range/Units Bedside Glucose 246 145 70-99 mg/dl White Blood Count 7.96 4.8-10.8 K/uL Red Blood Count 3.58 4.7-6.1 M/uL Hemoglobin 11.1 14.0-18.0 g/dL Hematocrit 34.1 42-52 % Mean Corpuscular Volume 95.3 80-100 fL Mean Corpuscular Hemoglobin 31.0 25-34 pg Mean Corpuscular Hemoglobin Concent 32.6 32-36 g/dl Platelet Count 119 130-400 K/uL Mean Platelet Volume 11.4 7.4-10.4 fL Neutrophils (%) (Auto) 80.5 % Lymphocytes (%) (Auto) 7.3 % Monocytes (%) (Auto) 11.9 % Eosinophils (%) (Auto) 0.0 % Basophils (%) (Auto) 0.0 % Neutrophils # (Auto) 6.41 1.4-6.5 K/uL Lymphocytes # (Auto) 0.58 1.2-3.4 K/uL Monocytes # (Auto) 0.95 0.11-0.59 K/uL Eosinophils # (Auto) 0.00 0-0.5 K/uL Basophils # (Auto) 0.00 0-0.2 K/uL RDW Standard Deviation 47.1 36.4-46.3 fL RDW Coefficient of Variation 13.6 11.5-14.5 % Immature Granulocyte % (Auto) 0.3 % Immature Granulocyte # (Auto) 0.02 0.00-0.02 K/uL Sodium Level 141 136-145 mmol/L Potassium Level 4.2 3.5-5.1 mmol/L Chloride Level 105 98-107 mmol/L Carbon Dioxide Level 27 21-32 mmol/L Anion Gap 9.0 3-11 mmol/L Blood Urea Nitrogen 33 7-18 mg/dl Creatinine 1.40 0.60-1.40 mg/dl Est Creatinine Clear Calc Drug Dose 68.3 ml/min Estimated GFR () 60.3 Estimated GFR (Non- 52.0 BUN/Creatinine Ratio 23.6 10-20 Random Glucose 164 70-99 mg/dl Calcium Level 8.0 8.5-10.1 mg/dl Assessment and Plan This is a 65 yo m POD1 s/p left hip arthroplasty with a sig medical h/o CAD/DMII / Sleep apnea/ Obesity S/P left hip arthroplasty - pain control as per primary team - incentive spirometry H/O CAD/ HTN - On Toprol XL, Chlorthalidone, enalapril - BMP Essential tremors - hold inderal to avoid hypotension Anemia secondary to acute blood loss - expected- will follow CBC - continue ferrous gluconate Hyperlipidemia - continue atorvastatin Asthma - continue advair O2 per protocol - Duoneb prn Sleep apnea - CPAP overnight GERD - Continue pantoprazole DMII - hold metformin - continue actos - Insulin ISS - lantus 10units - bsg AC HS Full code Continued [facility] stay due to: other Discharge planning: uncertain Reviewed: Pt Seen/Exam by Me History no new issues Constitutional: denies: fever Respiratory: negative: cough, short of breath Cardiovascular: denies chest pain, denies edema General Appearance: no apparent distress Respiratory: lungs clear, no respiratory distress Cardiovascular: regular rate, rhythm Gastrointestinal: normal bowel sounds, non tender, soft Neurologic/Psychiatric: alert, oriented x 3 Skin Characteristics: warm/dry Assessment/Plan I have reviewed the medical record and performed a history and physical examination of this patient today. I have discussed the case with Dr. Herr. The above note reflects my findings, conclusions, and recommendations.
[2016-05-23] MEDS: FERROUS GLUCONATE 324 MG TAB PO SCH ×3 (08:55→18:24)
[2016-05-23] MEDS: FLUTICASONE/SALMETEROL 250/50 (ADVAIR) 14 PUFF/1 INHALER INH SCH ×2 (08:56→21:48)
[2016-05-23] MEDS: PIOGLITAZONE TAB 15 MG TAB PO SCH (08:57)
[2016-05-23] MEDS: DOCUSATE SODIUM 100 MG CAP PO SCH ×2 (08:57→21:51)
[2016-05-23] MEDS: ASPIRIN 81 MG ECTAB PO SCH ×2 (08:58→21:51)
[2016-05-23] MEDS: FoLIC ACID TAB 400 MCG TAB PO SCH (08:59)
[2016-05-23] MEDS: CHLORTHALIDONE 25 MG TAB PO SCH (08:59)
[2016-05-23] MEDS: MULTIVITAMIN TAB PO SCH (09:00)
[2016-05-23] MEDS: PANTOprazole SOD 40 MG TAB PO SCH (09:00)
[2016-05-23] MEDS ORDERED: PROPRANOLOL HCL 60 MG LA CAP PO SCH (09:00)
[2016-05-23] MEDS: CYANOCOBALAMIN 500 MCG TAB (VIT B-12) PO SCH (09:01)
[2016-05-23] MEDS: METOPROLOL SUCC 50MG EXT REL TAB PO SCH (09:01)
[2016-05-23] MEDS: CHOLECALCIFEROL 1000 INTER.UNIT TAB PO SCH (09:02)
[2016-05-23] MEDS: LORATADINE 10 MG TAB PO SCH (09:08)
[2016-05-23] MEDS: TRAMADOL HCL 50 MG TAB PO PRN ×2 (16:54→21:47)
[2016-05-23] MEDS: ATORVASTATIN 40 MG TAB PO SCH (21:51)
[2016-05-23] MEDS: ENALAPRIL MALEATE 10 MG TAB PO SCH (21:51)
[2016-05-23] MEDS: SENNA 8.6 MG TAB PO SCH (21:52)
[2016-05-24] MEDS: OXYCODONE HCL IR 5 MG TAB (IMMEDIATE RELEASE) PO PRN ×6 (05:05→22:46)
[2016-05-24 06:12] LABS: HEMATOCRIT 33.1 % (42-52); MEAN CELL VOLUME 96.5 fL (80-100); MEAN CORPUSCULAR HEMOGLOBIN 31.2 pg (25-34); MEAN CORPUSCULAR HGB CONC 32.3 g/dl (32-36); MEAN PLATELET VOLUME 11.4 fL (7.4-10.4); PLATELET COUNT 104 K/uL (130-400); RED BLOOD COUNT 3.43 M/uL (4.7-6.1); WHITE BLOOD COUNT 5.97 K/uL (4.8-10.8)
[2016-05-24 06:45] LABS: BUN/CREATININE RATIO 26.5 (10-20); CALCIUM 8.4 mg/dl (8.5-10.1); CREATININE 1.1 mg/dl (0.60-1.40); POTASSIUM 4.6 mmol/L (3.5-5.1)
[2016-05-24 06:49] VITALS: BP 114/68; PULSE 62; TEMP 36.8; O2SAT 91
[2016-05-24] MEDS: INSULIN ASPART 100 UNITS/ML 3 ML PEN SC SCH ×4 (08:00→20:32)
[2016-05-24] MEDS: FERROUS GLUCONATE 324 MG TAB PO SCH ×3 (08:57→17:47)
[2016-05-24] MEDS: FLUTICASONE/SALMETEROL 250/50 (ADVAIR) 14 PUFF/1 INHALER INH SCH ×2 (08:58→20:30)
[2016-05-24] MEDS: DOCUSATE SODIUM 100 MG CAP PO SCH ×2 (09:00→20:29)
[2016-05-24] MEDS: ASPIRIN 81 MG ECTAB PO SCH ×2 (09:00→20:31)
[2016-05-24] MEDS: LORATADINE 10 MG TAB PO SCH (09:00)
[2016-05-24] MEDS: PIOGLITAZONE TAB 15 MG TAB PO SCH (09:00)
[2016-05-24] MEDS: FoLIC ACID TAB 400 MCG TAB PO SCH (09:01)
[2016-05-24] MEDS: PANTOprazole SOD 40 MG TAB PO SCH (09:01)
[2016-05-24] MEDS: MULTIVITAMIN TAB PO SCH (09:01)
[2016-05-24] MEDS: CHLORTHALIDONE 25 MG TAB PO SCH (09:01)
[2016-05-24] MEDS: METOPROLOL SUCC 50MG EXT REL TAB PO SCH (09:02)
[2016-05-24] MEDS: CYANOCOBALAMIN 500 MCG TAB (VIT B-12) PO SCH (09:02)
[2016-05-24] MEDS: CHOLECALCIFEROL 1000 INTER.UNIT TAB PO SCH (09:02)
[2016-05-24] MEDS: INSULIN GLARGINE SOLOSTAR 100 UNITS/ML 3 ML PEN SC SCH (09:10)
--- NOTE | 2016-05-24 09:26 | Orthopedic Progress Note ---
Orthopedic Progress Note Date of Service May 24, 2016. Subjective Post OP Day: 2 Reports: feeling well, pain controlled w PO medications (Pain is doing well at rest. Some increase in pain with activity.), Denies: SOB, calf pain, chest pain , light headedness, nausea / vomiting Additional Notes: Foot numbness has improved. Still some numbness at the big toe and part of the 2nd toe. Objective calves soft nontender, N/V intact, hip located, capillary refill less than 2 sec., dressing C/D/I, A&O x3, toes mobile Prevena dressing in place and functioning. Date Time Temp Pulse Resp B/P Pulse Ox O2 Delivery O2 Flow Rate FiO2 05/24/16 06:49 36.8 62 20 114/68 91 Room Air 05/23/16 23:40 Room Air 05/23/16 23:02 36.6 64 16 111/70 95 Room Air 05/23/16 16:00 Room Air 05/23/16 15:44 36.5 65 16 101/62 95 Room Air 05/23/16 11:58 36.6 68 16 111/69 96 Room Air 05/23/16 10:13 96 Room Air 05/23/16 09:55 68 98 Laboratory Results 24 Hours: Test 05/24/16 05:50 Hematocrit 33.1 % Hemoglobin 10.7 g/dL Assessment & Plan Assessment: POD #2 s/p left [facility] Inhouse Planning Pain Management: Celebrex, Ultram, Morphine, PO Tylenol, Oxy IR DVT Prophylaxis: DMITRYs ASA Discharge Planning Discharge Planning: home with home health (Plan for Thursday) Pain Management: Celebrex, Oxycontin, PO Tylenol, Oxy IR DVT Prophylaxis: TEDs, ASA
--- NOTE | 2016-05-24 13:03 | Family Medicine Progress Note ---
Progress Note Date of Service May 24, 2016. Subjective no new concerns. Constitutional: No fever Respiratory: No shortness of breath Cardiovascular: No chest pain Abdomen: No nausea, No pain Objective Physical Exam General Appearance: no apparent distress Respiratory/Chest: lungs clear, no respiratory distress Cardiovascular: regular rate, rhythm Abdomen: normal bowel sounds, non tender, soft Extremities: + pertinent finding (left hip dressing +) Neurologic/Psychiatric: alert, oriented x 3 Skin: warm/dry Assessment and Plan 65 yo m s/p left hip arthroplasty with a sig medical h/o CAD/DMII/ Sleep apnea/ Obesity S/P left hip arthroplasty - pain control as per primary team - incentive spirometry H/O CAD/ HTN - BP controlled on Toprol XL, Chlorthalidone, enalapril Essential tremors - hold inderal to avoid hypotension Anemia secondary to acute blood loss - expected- h/h noted. - continue ferrous gluconate Hyperlipidemia - continue atorvastatin Asthma - continue advair O2 per protocol - Duoneb prn Sleep apnea - CPAP overnight GERD - Continue pantoprazole DMII - holding metformin. resume on discharge. - continue actos - Insulin ISS - lantus 10units - bsg HS
[2016-05-24 15:36] VITALS: O2SAT 94
[2016-05-24 15:45] VITALS: BP 94/58; PULSE 72; TEMP 36.9; O2SAT 93
[2016-05-24 15:51] VITALS: O2SAT 94
[2016-05-24] MEDS: ENALAPRIL MALEATE 10 MG TAB PO SCH (20:31)
[2016-05-24] MEDS: ATORVASTATIN 40 MG TAB PO SCH (20:31)
[2016-05-24] MEDS: SENNA 8.6 MG TAB PO SCH (20:31)
[2016-05-24 21:00] VITALS: BP 113/64
[2016-05-24 23:14] VITALS: BP_SYST 130; BP_SYST 143; BP_DIAS 70; BP_DIAS 78; PULSE 59; PULSE 78; TEMP 36.7; TEMP 37; O2SAT 92; O2SAT 98
[2016-05-25] MEDS: OXYCODONE HCL IR 5 MG TAB (IMMEDIATE RELEASE) PO PRN ×3 (04:20→12:43)
[2016-05-25 07:33] VITALS: BP 149/63; PULSE 82; TEMP 37; O2SAT 90
[2016-05-25] MEDS: INSULIN ASPART 100 UNITS/ML 3 ML PEN SC SCH ×2 (08:00→12:30)
--- NOTE | 2016-05-25 08:00 | Orthopedic Progress Note ---
Orthopedic Progress Note Date of Service May 25, 2016. Subjective Post OP Day: 3 Reports: feeling well, pain controlled w PO medications, Denies: SOB, calf pain , chest pain, complaints, light headedness, nausea / vomiting Objective calves soft nontender, N/V intact, hip located, capillary refill less than 2 sec., dressing C/D/I, A&O x3, toes mobile Prevena dressing in place and functioning. Date Time Temp Pulse Resp B/P Pulse Ox O2 Delivery O2 Flow Rate FiO2 05/25/16 07:33 37.0 82 18 149/63 90 Room Air 05/24/16 23:40 CPAP 05/24/16 23:14 37.0 78 18 143/70 92 Room Air 05/24/16 21:00 113/64 05/24/16 15:51 94 05/24/16 15:45 36.9 72 19 94/58 93 Room Air 05/24/16 15:36 94 Room Air CPAP 05/24/16 09:36 Room Air Assessment & Plan Assessment: POD #3 s/p left [facility] Inhouse Planning Pain Management: Celebrex, Ultram, Morphine, PO Tylenol, Oxy IR DVT Prophylaxis: DMITRYs, ASA Discharge Planning Discharge Planning: home with home health (Today after PT.) Pain Management: Celebrex, Oxycontin, PO Tylenol, Oxy IR DVT Prophylaxis: TEDs, ASA
[2016-05-25] MEDS ORDERED: ASPEC81 PO (08:04)
[2016-05-25] MEDS ORDERED: ONDA8TAB6 PO (08:04)
[2016-05-25] MEDS ORDERED: RXC5 PO (08:04)
[2016-05-25] MEDS ORDERED: ACET-1257 PO (08:04)
[2016-05-25] MEDS ORDERED: CLB200 PO (08:04)
--- NOTE | 2016-05-25 08:06 | Discharge Instructions ---
Discharge Instructions Date of Service May 25, 2016. Admission Reason for Admission: Unspecificed Left Hip Osteoarthritis, Unspecified Discharge Discharge Diagnosis / Problem: left hip osteoarthritis Discharge Goals Goal(s): Decrease discomfort, Improve function Activity Recommendations Activity Limitations: as noted below Lifting Limitations: until after follow-up appointment Exercise/Sports Limitations: until after follow-up appointment May Resume Sexual Activity: when tolerated Shower/Bathe: keep incision dry Driving or Machine Use: When cleared by Dr. Ruano's clinic. Weightbearing Status: Left weightbearing (as tolerated) . Instructions / Follow-Up Instructions / Follow-Up ACTIVITY RECOMMENDATIONS: SELF CARE INSTRUCTIONS AFTER TOTAL HIP REPLACEMENT Until the incision and soft tissues around your hip have healed, there is a possibility that the hip prosthesis could dislocate. A. Observe the following precautions to prevent dislocation: 1. Don't bend your hip greater than 90 degrees. 2. Avoid crossing your legs or ankles while standing or lying. 3. Sit with your feet placed 6 inches apart. 4. When sitting, keep your knees below your hips. Sit on a firm surface, avoid deep, soft chairs and couches. Use an elevated toilet seat in the bathroom. 5. Don't bend over at the waist. Use a long handled shoehorn and a sock aid to help you put on your shoes and socks. A retirement sales consultant can help you picking tech objects that are too high or too low to reach. 6. Keep car riding to a minimum for at least one month after surgery. B. Your balance may be shaky for a while. Use crutches or a walker until directed by your doctor. C. Use hand rails when walking on stairs. D. Wear low heeled shoes with non-slip soles. E. Be sure that your floors are free of things that could trip you - throw rugs , electrical cords, small objects. Avoid wet and waxed floors, especially with crutches and canes. F. Try to walk several times a day with rest periods between. G. Continue with all the exercises taught to you in the hospital. Again, make walking a part of your daily routine. H. It is okay to shower if minimal to no drainage from incision. No baths. Do not soak wound. I. Physical Therapy as instructed by your Physician. Mohit Prevena- This is a large suction dressing covering your incision. This will help pull any excess drainage from the wound and allow your incision to heal properly. You may shower with this if you can keep the unit outside of the shower. If any bleeding or leakage is noted please call your doctor's office. This will remain on your incision for 7 days and then should be removed. This can be done yourself or by the home nursing staff if applicable. The entire unit is disposable once removed. Once removed, keep incision clean and dry. If redness or drainage is noted, please call your surgeon. SPECIAL CARE INSTRUCTIONS: VERY IMPORTANT TO READ AND REVIEW A. You may still be at risk for phlebitis and blood clots. 1. Wear surgical stockings (DMITRY hose) for one month, 20 hours daily, after surgery to improve circulation and reduce swelling. 2. Take Aspirin (blood thinning medications), as directed by your doctor. 3. Have a pro-time (blood test) drawn according to your doctor's instructions. B. We encourage and will assist you in choosing a home-health agency of your choice. Home health nurses and therapists will monitor your temperature, wound healing and progress in exercise and walking. Home health nurses may also draw the blood for the pro-time test. They may instruct you in decreasing or increasing the amount of Coumadin you take. C. You must take antibiotics before having dental work, bladder, bowel and other surgery. Your doctor will provide you with a permanent card to carry describing precautions. D. Call [facility] if you have a temperature of 101 or greater, redness or swelling around the incision, cloudy drainage from incision, or sudden increase in pain in your hip, not relieved by your regular pain medication. E. Please call the office at if you have any concerns or questions about your operation or recovery. FOLLOW UP VISIT: If appointment is not already scheduled: Please call [facility] to make a follow-up appointment for one month after your surgery at . Current Hospital Diet Patient's current hospital diet: Diabetes Type 2 Diet Discharge Diet Recommended Diet: Diabetes Type 2 Diet Procedures Procedures Performed: Left Total Hip Arthroplasty Uncemented Pending Studies Studies pending at discharge: no Medical Emergencies . Who to Call and When: Medical Emergencies: If at any time you feel your situation is an emergency, please call [phone] immediately. . Non-Emergent Contact Non-Emergency issues call your: Surgeon Call Non-Emergent contact if: temperature is above 101, your pain is not controlled, your pain is worsening, wound has increased drainage, wound has increased redness, wound has increased pain . "Provider Documentation" section prepared by [place]. VTE Core Measure Inpt VTE Proph given/why not?: Other Anticoagulation (Aspirin 81 mg every 12 hours for 30 days), T.E.D. Stockings
[2016-05-25] MEDS: FERROUS GLUCONATE 324 MG TAB PO SCH ×2 (08:36→12:26)
[2016-05-25] MEDS: FLUTICASONE/SALMETEROL 250/50 (ADVAIR) 14 PUFF/1 INHALER INH SCH (08:36)
[2016-05-25] MEDS: PIOGLITAZONE TAB 15 MG TAB PO SCH (08:37)
[2016-05-25] MEDS: DOCUSATE SODIUM 100 MG CAP PO SCH (08:37)
[2016-05-25] MEDS: LORATADINE 10 MG TAB PO SCH (08:37)
[2016-05-25] MEDS: ASPIRIN 81 MG ECTAB PO SCH (08:38)
[2016-05-25] MEDS: MULTIVITAMIN TAB PO SCH (08:38)
[2016-05-25] MEDS: CHLORTHALIDONE 25 MG TAB PO SCH (08:38)
[2016-05-25] MEDS: FoLIC ACID TAB 400 MCG TAB PO SCH (08:38)
[2016-05-25] MEDS: CHOLECALCIFEROL 1000 INTER.UNIT TAB PO SCH (08:39)
[2016-05-25] MEDS: CYANOCOBALAMIN 500 MCG TAB (VIT B-12) PO SCH (08:39)
[2016-05-25] MEDS: PANTOprazole SOD 40 MG TAB PO SCH (08:39)
[2016-05-25] MEDS: METOPROLOL SUCC 50MG EXT REL TAB PO SCH (08:39)
[2016-05-25] MEDS: INSULIN GLARGINE SOLOSTAR 100 UNITS/ML 3 ML PEN SC SCH (08:45)
[2016-05-25 10:16] VITALS: BP 149/63; PULSE 82; TEMP 37; O2SAT 90
--- NOTE | 2016-05-28 11:17 | DISCHARGE SUMMARY ---
DISCHARGE DIAGNOSIS: Degenerative joint disease, left hip. SECONDARY DIAGNOSES: Coronary artery disease, history of abdominal aortic aneurysm, hypertension, hypercholesterolemia, mild asthma, sleep apnea with CPAP use, type 2 diabetes mellitus, history of renal calculi, gastroesophageal reflux disease, obesity. CONSULTS: DR Nemesio M.D. COMPLICATIONS: None. PROCEDURES: Left total hip arthroplasty performed by Dr. Ruano on 05/22/2016. BRIEF HISTORY: As dictated in history and physical. HOSPITAL SUMMARY: The patient was admitted on the above-noted date and had the above-noted surgery performed which he tolerated well. Postoperatively, Dr. Herr was consulted for medical management and continued to follow the patient during his stay along with her hospitalist group. On his first postoperative day, vital signs were stable and he was afebrile. Hemoglobin was 11.1 and patient was remaining stable and was started on physical therapy protocol and continued on DVT prophylaxis and pain management. He later had developed some numbness in his lower extremity on the operative side which resolved over time. He was seen on the second postoperative day by Mr. Shahid PA-C, which his foot numbness had improved. He still had some numbness at the big toe and part of the second toe. Calves were soft and nontender. He was otherwise neurologically intact. Hip was located. Dressings clean, dry and intact. Toes were mobile. He was continued on his PT protocol and continued on medical management. The rest of his stay was essentially uneventful and by 05/25/2016 he was progressing well with physical therapy. Calves are soft, nontender. Neurovascularly intact. Hip was located. Vital signs were stable. He was afebrile and it was felt that he could be discharged to home with home health services on 05/25/2016. For further review, please see chart. LAB AND X-RAY DATA: As per chart. DISCHARGE INSTRUCTIONS: The patient was discharged to home in satisfactory condition on 05/25/2016. DIET: Diabetic. ACTIVITY: Follow [facility] instruction sheets and special care instructions as noted, weightbearing as tolerated left lower extremity. Follow up with Dr. Ruano in 2 weeks. The patient to call for appointment if one has not been made for you. DISCHARGE MEDICATIONS: Acetaminophen 1000 mg p.o. q. 8 hours, aspirin 81 mg p.o. b.i.d., Celebrex 200 mg p.o. q. 12 hours, Zofran 8 mg p.o. q. 8 hours p.r.n. nausea, oxycodone 5-10 mg p.o. q. 4 hours p.r.n. After 30 days taking aspirin tablet twice daily stop taking twice daily and resume once daily dosing. Resume home meds as listed in the current discharge instructions. MTDD
== END 2016-05-25 13:49 | disposition home health service (06) | DRG 470 ==
LOC: ENRESERVDT → ENRESERVTM → ENRESERV → C.ACU 06:01 → C.3E 07:00
PROC: 0SRB04A Replacement of Left Hip Joint with Ceramic on Polyethylene Synthetic Substitute, Uncemented, Open Approach (ICD-10-PCS; principal; 2016-05-22 07:45)
DX: M16.12 Unilateral primary osteoarthritis, left hip (principal); Z68.41 Body mass index [BMI] 40.0-44.9, adult; D62 Acute posthemorrhagic anemia; E66.9 Obesity, unspecified; I10 Essential (primary) hypertension; E78.00 Pure hypercholesterolemia, unspecified; G25.0 Essential tremor; G47.30 Sleep apnea, unspecified; E11.9 Type 2 diabetes mellitus without complications; K21.9 Gastro-esophageal reflux disease without esophagitis; J45.909 Unspecified asthma, uncomplicated; Z96.641 Presence of right artificial hip joint; Z79.899 Other long term (current) drug therapy; F17.210 Nicotine dependence, cigarettes, uncomplicated; Z95.5 Presence of coronary angioplasty implant and graft

== ENCOUNTER → 2016-07-07 | Outpatient (CLI) | payer OTHER ==
[~2016-07-07] MED LIST changes: +ACET-1257 PO; -ACETAMINOPHEN 500 MG TAB PO SCH; -CEFAZOLIN 3000 MG/65 ML D5W 65 ML IV SCH; +CLB200 PO; -CeleBREX 200 MG CAP PO SCH; -DEXAMETHASONE 4 MG TAB PO SCH; -FAMOTIDINE 20 MG TAB PO SCH; -GABAPENTIN 300 MG CAP PO SCH; -LACTATED RINGER'S 1000ML 1,000 ML IV SCH; -LACTATED RINGER'S 1000ML IV SCH; -LACTATED RINGER'S 500 ML IV SCH; +METO100T44 PO; -METO1TAB69 PO; -METOCLOPRAMIDE HCL 10 MG TAB PO SCH; +ONDA8TAB6 PO; -ROPIVACAINE 5MG/ML 30 ML 150 MG, BUPIVACAINE/EPINEPHR 0.5% MPF 30 ML, KETOROLAC TROMETH... INFIL SCH; +RXC5 PO
--- NOTE | 2016-07-07 22:35 | DIAGNOSTIC IMAGING REPORT ---
THREE-PHASE NUCLEAR BONE SCAN OF THE HIPS AND PELVIS CLINICAL HISTORY: Left hip pain. COMPARISON STUDY: Pelvic radiograph dated 05/22/2016. TECHNIQUE: Following the IV administration of 26.2 mCi of technetium 99m MDP, three-phase bone scan of the hips and pelvis was performed. Flow and blood pool phase imaging was acquired both anteriorly and posteriorly. Bone phase imaging of the hips and pelvis was performed at three hours in multiple obliquities. FINDINGS: There is no hyperemia identified on the flow images. There is minimal hyperemia is suggested overlying the left hip on the blood pool phase. On the bone phase imaging there are photopenic defects identified consistent with bilateral hip arthroplasties. There is abnormal tracer deposition identified involving the intertrochanteric left femur and along the proximal left femoral shaft around the arthroplasty stem. Only minimal activity is present around the left acetabular cup. No abnormal tracer deposition is seen around the right hip arthroplasty. There is expected excreted activity in the bladder. IMPRESSION: 1. Three-phase negative bone scan of the hips and pelvis. 2. There is slight hyperemia suggested in the soft tissues around the left hip on the blood pool phase series as well as abnormal tracer deposition identified in the left proximal femur around the arthroplasty on the bone phase images. This is nonspecific given the history of recent surgery and postoperative change/activity is favored. Superimposed infection or loosening would be impossible to exclude but these are considered less likely. Clinical correlation will be essential. 3. No abnormal tracer deposition is identified around the right hip arthroplasty. Electronically signed by: Tucker Leon M.D. 07/07/2016 10:33 PM Dictated Date/Time: 07/07/2016 10:28 PM
== END | disposition home or self-care (01) ==
LOC: C.NUCL 17:05
DX: Z47.1 Aftercare following joint replacement surgery (principal); Z96.641 Presence of right artificial hip joint